=== PATIENT | female | born 1945 | race Caucasian/White ===

== ENCOUNTER 2016-06-12 19:30 | Emergency (ER) | payer OTHER ==
[~2016-06-12] VITALS: Ht 167.6 cm; Wt 90.7 kg
[~2016-06-12 19:30] MED LIST: ESTR.1T TD; LEVA500T33 PO; VENTAER INH
[2016-06-12 19:40] VITALS: BP 187/76; PULSE 86; RESP 20; TEMP 97.6; O2SAT 96
[2016-06-12] MEDS ORDERED: SODIUM CHLOR 0.9% 1000 ML INJ 1,000 ML IV SCH (19:49)
--- NOTE | 2016-06-12 19:53 | PD ---
HPI Chief Complaint: allergic reaction Time Seen by Provider: 19:49 Travel History International Travel<30 days: No Contact w/Intl Traveler<30days: No Traveled to known affect area: No History of Present Illness HPI Patient is a 70-year-old female who took of Bactrim DS at 1:30 PM and at 3 PM noted itching in her arms and legs. She states this is the same reaction she had when she took Keflex, and she is allergic to Keflex, except the itching is more widespread into the arms and legs. She does complain of shortness of breath but denies any wheezing. The patient is a patient of Dr. Michael Peng. The Septra was for a urinary tract infection. She denies any skin rash. [facility] Past Medical History Respiratory: Yes (ASTHMA) Past Surgical History Abdominal Surgery: Yes (LAP. SKYLER) Gynecologic Surgery: Yes (HYSTERECTOMY) Other Surgery: Yes Social History Alcohol Use: No Tobacco Use: No Substance Use: No Allergies-Medications (Allergen,Severity, Reaction): Coded Allergies: Keflex (Unverified Allergy, Severe, ITCH, 02/03/13) Reported Meds & Prescriptions Reported Meds & Active Scripts Active Levaquin (Levofloxacin) 500 Mg Tab 500 Mg PO DAILY Reported Ventolin Hfa (Albuterol Sulfate) 18 Gm Aero 2 Puff INH PRN * SHAKE WELL BEFORE USE * Estraderm (Estradiol) 0.1 Mg/24 Hr Patch 0.1 Mg TD WEEKLY Review of Systems Except as stated in HPI: all other systems reviewed are Neg Physical Exam Narrative GENERAL: Well-nourished, well-developed patient in moderate apparent distress with her itching. Her temperature is 97.6 but she is mouth breathing and blood pressure 187/76. She is anxious. The rest the vital signs are normal. SKIN: Warm and dry. No skin rash is present. HEAD: Normocephalic. EYES: No scleral icterus. No injection or drainage. NECK: Supple, trachea midline. No JVD or lymphadenopathy. CARDIOVASCULAR: Regular rate and rhythm without murmurs, gallops, or rubs. RESPIRATORY: Breath sounds equal bilaterally. No accessory muscle use. Lungs clear to auscultation bilaterally. GASTROINTESTINAL: Abdomen soft, non-tender, nondistended. MUSCULOSKELETAL: No cyanosis, or edema. BACK: The patient has midline low sacral tenderness without obvious deformity. No CVA tenderness. Pressure on this area completely reproduces the patient's pain. Data Data Last Documented VS Vital Signs Date Time Temp Pulse Resp B/P Pulse Ox O2 Delivery O2 Flow Rate FiO2 06/12/16 19:40 97.6 86 20 187/76 96 Orders Ecg Monitoring (06/12/16 19:49) Iv Access Insert/Monitor (06/12/16 19:49) Oximetry (06/12/16 19:49) Diphenhydramine Inj (Benadryl Inj) (06/12/16 20:00) Methylprednisolone So Succ Inj (Solumedr (06/12/16 20:00) Famotidine Inj (Pepcid Inj) (06/12/16 20:00) Sodium Chlor 0.9% 1000 Ml Inj (Ns 1000 M (06/12/16 19:49) Sodium Chloride 0.9% Flush (Ns Flush) (06/12/16 20:00) Epinephrine (1:1000) Inj (Adrenalin (1:1 (06/12/16 20:00) Ketorolac Inj (Toradol Inj) (06/12/16 20:15) Orphenadrine Inj (Norflex Inj) (06/12/16 20:15) MDM Medical Decision Making Medical Screen Exam Complete: Yes Emergency Medical Condition: Yes Medical Record Reviewed: Yes Differential Diagnosis Allergic reaction, anxiety reaction, sulfa allergy, acute exacerbation of low back pain Narrative Course The patient appears to have a sulfa allergy. It is now a 20 3 PM and the patient states her itching has resolved. Her main complaint now is pain in the midline sacral area from her back. She denies any radiation of pain, numbness, weakness or bladder or bowel dysfunction. Diagnosis Primary Impression: Allergy to sulfa drugs Additional Impression: Low back pain Additional Instructions: As we discussed the prednisone is taken one tablet twice daily for 4 days followed by one tablet once daily for 4 days. Follow-up next week with your primary care physician. Med/Other Pt SpecificInfo: Prescription(s) given Scripts Prednisone 50 Mg Tab50 Mg PO BID #12 TAB Ref 0 Prov:Isael Varma MD 06/12/16 Ranitidine (Zantac 150 Maximum Strength)150 Mg [id number] Mg PO BID #30 TAB Prov:Isael Varma MD 06/12/16 Diphenhydramine (Benadryl Allergy)25 Mg Tab25 Mg PO Q6H PRN (ALLERGIES) #30 TAB Ref 0 Prov:Isael Varma MD 06/12/16 Disposition: 01 DISCHARGE HOME Condition: Stable Isael Varma MD Jun 12, 2016 19:53
[2016-06-12 20:00] VITALS: BP 176/90; PULSE 84; RESP 20; O2SAT 96
[2016-06-12] MEDS ORDERED: SODIUM CHLORIDE 0.9% FLUSH 5 ML FLUSH IVF PRN (20:00)
[2016-06-12] MEDS ORDERED: FAMOTIDINE 20 MG/2 ML VIAL IV PUSH ONE (20:00)
[2016-06-12] MEDS ORDERED: diphenhydrAMINE HCL 50 MG/ML VIAL IVP ONE (20:00)
[2016-06-12] MEDS ORDERED: methylPREDNISolone SOD SUCC 125 MG/2 ML VIAL IVP ONE (20:00)
[2016-06-12] MEDS ORDERED: EPINEPHrine HCL (1:1000) 1 MG/ML VIAL IM ONE (20:00)
[2016-06-12 20:15] VITALS: BP 150/75; PULSE 98; RESP 20; O2SAT 96
[2016-06-12] MEDS ORDERED: ORPHENADRINE INJ 60 MG/2 ML AMP IM ONE (20:15)
[2016-06-12] MEDS ORDERED: KETOROLAC TROMETHAMINE 60 MG/2 ML (IM) VIAL IVP ONE (20:15)
[2016-06-12] MEDS ORDERED: ZANTTAB PO (20:28)
[2016-06-12] MEDS ORDERED: BENA25TA3 PO (20:28)
[2016-06-12] MEDS ORDERED: PRED50 PO (20:28)
[2016-06-12 20:30] VITALS: BP 139/70; PULSE 92; RESP 20; O2SAT 97
[2016-06-12 20:45] VITALS: BP 127/63; PULSE 89; RESP 18; O2SAT 97
[2016-06-12] MEDS ORDERED: ESTR0.5T PO (21:07)
[2016-06-12 21:15] VITALS: BP 147/77; PULSE 88; RESP 18; TEMP 97.6; O2SAT 96
[2016-06-12] MEDS ORDERED: MACR100C2 PO (21:24)
== END 2016-06-12 21:42 | disposition home or self-care (01) ==
LOC: PHED 19:30
DX: L29.8 Other pruritus (principal); T37.0X5A Adverse effect of sulfonamides, initial encounter; R06.02 Shortness of breath; J45.909 Unspecified asthma, uncomplicated; M54.5 Low back pain; Y92.9 Unspecified place or not applicable
CPT/HCPCS: 96361; 96372; 96374; 96375; 99284; J0171; J1200; J1885; J2360; J2930; J7030

== ENCOUNTER 2016-07-16 10:43 | Emergency (ER) | payer OTHER ==
[~2016-07-16] VITALS: Ht 167.6 cm; Wt 90.0 kg
[~2016-07-16 10:43] MED LIST changes: +BENA25TA3 PO; -ESTR.1T TD; +ESTR0.5T PO; -LEVA500T33 PO; +MACR100C2 PO; +PRED50 PO; -VENTAER INH; +ZANTTAB PO
[2016-07-16 10:45] VITALS: BP 160/77; PULSE 90; RESP 20; TEMP 97.8; O2SAT 97
[2016-07-16] MEDS ORDERED: LORA-400 PO (11:09)
[2016-07-16 11:10] VITALS: BP 176/87; PULSE 86; RESP 18; O2SAT 94
[2016-07-16] MEDS ORDERED: PANTOPRAZOLE SODIUM 40 MG VIAL IV PUSH ONE (11:45)
[2016-07-16] MEDS ORDERED: FAMOTIDINE 20 MG/2 ML VIAL IV PUSH ONE (11:45)
[2016-07-16 11:56] LABS: BLOOD, URINE NEG (NEG); GLUCOSE,URINE NEG (NEG); KETONE, URINE NEG (NEG); NITRITE,URINE NEG (NEG); SQUAMOUS EPITHELIAL CELL URINE <1 /hpf (0-5); URINE COLOR YELLOW (YELLW/STRAW)
[2016-07-16 11:58] LABS: COMMENT (UR) CULT NOT INDICATED; CULTURE IF INDICATED CULT NOT INDICATED
--- NOTE | 2016-07-16 11:59 | PD ---
HPI Chief Complaint: Chest Pain Time Seen by Provider: 11:52 Travel History International Travel<30 days: No Contact w/Intl Traveler<30days: No Traveled to known affect area: No History of Present Illness HPI 70 yo female that presents to the ED for evaluation of chest pain which she describes as heart burn. Patient reports that she's had this couple days but is worsened today. Per patient she believes this is heartburn as she feels like a burning sensation in her right upper abdomen as well as the right chest. Per patient he seems to move up her chest and makes her feel like she has a burning sensation. Per patient she is currently being treated for a UTI and she is taking Macrobid. She does not know if this is related that she's had this symptoms before but not as severe and she always attributed this to heartburn in the past. She has not taken anything for this. Per patient she was initially put on a different antibiotic on Thursday for a UTI that was found on a urine but not with symptoms and apparently she could not take the antibiotic because he made her to energetic. Per patient the medication was changed on Thursday and ever since she feels like her symptoms have worsened. She denies any bowel movement or urinary issues. She does state that she has urgency but no dysuria. Denies any vaginal discharge. She does not have a gallbladder a uterus. Has allergies to Bactrim, Keflex, sulfa. Per patient the pain is 4 out of 10 and is burning. Has not seen anybody for this. PFSH Past Medical History COPD: Yes Diminished Hearing: No Kidney Stones: Yes Musculoskeletal: Yes (Degenerative disk disease) Respiratory: Yes Immunizations Current: Yes Tetanus Vaccination: Unknown Influenza Vaccination: Yes ?: Not Menopausal: Yes : 2 Para: 3 Past Surgical History Abdominal Surgery: Yes (LAP. SKYLER) Cholecystectomy: Yes () Gynecologic Surgery: Yes (HYSTERECTOMY) Hysterectomy: Yes Joint Replacement: Yes (R knee surgery 2001) Tonsillectomy: Yes Other Surgery: Yes Social History Alcohol Use: Yes (occasionally) Tobacco Use: No Substance Use: No Allergies-Medications (Allergen,Severity, Reaction): Coded Allergies: Bactrim (Verified Allergy, Severe, Shortness of Breath, 07/16/16) SOB, itching Keflex (Verified Allergy, Severe, ITCH, 07/16/16) Sulfa (Verified Allergy, Mild, Itching, 07/16/16) Reported Meds & Prescriptions Reported Meds & Active Scripts Active Macrobid (Nitrofurantoin Monoh/Nitrofur Macro) 100 Mg Cap 100 Mg PO BID 10 Days Reported Claritin-D 24 HR (Loratadine-Pseudoephedrine 24 HR) 10-240 Mg Tab 1 Tab PO DAILY Estradiol 0.5 Mg Tab 0.1 Mg PO DAILY Review of Systems General / Constitutional: No: Fever, Chills, Weight Gain, Weight Loss, Other Eyes: No: Diploplia, Blurred Vision, Photophobia, Drainage, Redness, Foreign Body Sensation, Pain, Tearing, Blind Spots, Visual changes, Blindness, Other HENT: No: Headaches, Vertigo, Lightheadedness, Sore Throat, Rhinitis, Rhinorrhea, Congestion, Nosebleed, Neck Stiffness, Neck Pain, Masses, Gingival Bleeding, Dental Difficulties, Ear Discharge, Earache, Other Cardiovascular: Positive: Chest Pain or Discomfort, No: Palpitations, Irregular Rhythm, Tachycardia, Diaphoresis, Syncope, Dyspnea on exertion, Varicosities, Edema, Cyanosis, Varicosities, Phlebitis, Claudication, Other Respiratory: No: Cough, Shortness of Breath, Wheezing, Sneezing, Orthopnea, Hemoptysis, Stridor, Night Sweats, Pleuritic Pain, Other Gastrointestinal: Positive: Abdominal Pain, Indigestion, No: Nausea, Vomiting , Diarrhea, Hematemesis, Hematochezia, Constipation, Changes in Bowel Habits, Dysphagia, Loss of Appetite, Other Genitourinary: Positive: Urgency, Frequency, No: Dysuria, Nocturia, Hematuria , Decreased Urinary Output, Oliguria, Hesitancy, Dribbling, Incontinence, Pelvic Pain, Flank Pain, Dyspareunia, Discharge, Dysmenorrhea, Menorrhagia, Metorrhagia, Vaginal Bleeding, Other Musculoskeletal: No: Myalgias, Arthralgias, Limited ROM, Weakness, Cramping, Edema, Pain, Atrophy, Other Skin: No Rash, No Itching, No Dryness, No Lumps, No Hives, No Change in Pigmentation, No Change in nails, No Alopecia, No Lesions, No Breast Lumps, No Breast Tenderness, No Breast Swelling, No Other Neurologic: No: Weakness, Dizziness, Syncope, Focal Abnormalities, Coordination Problem, Tremor, Ataxia, Headache, Change in Mentation, Slurred Speech, Paresthesia, Incontinence, Seizures, Sensory Disturbance, Other Psychiatric: No: Anxiety, Depression, Suicidal Ideations, Disorder of Thought, Mood Disorder, Substance Abuse, Homicidal Ideation, Other Endocrine: No: Heat Intolerance, Cold Intolerance, Polyuria, Polydipsia, Other Hematologic/Lymphatic: No: Easy Bruising, Lymph Node Enlargement, Other Physical Exam Narrative GENERAL: SKIN: Warm and dry. No rashes noted. HEAD: Atraumatic. Normocephalic. EYES: Pupils equal and round. No scleral icterus. No injection or drainage. ENT: No nasal bleeding or discharge. Mucous membranes pink and moist. Tongue is midline. No uvula deviation. NECK: Trachea midline. No JVD. CARDIOVASCULAR: Regular rate and rhythm. No murmurs, S3, S4. RESPIRATORY: No accessory muscle use. Clear to auscultation. Breath sounds equal bilaterally. GASTROINTESTINAL: Abdomen soft, non-tender, nondistended. Hepatic and splenic margins not palpable. MUSCULOSKELETAL: Extremities without clubbing, cyanosis, or edema. No obvious deformities. Full range of motion of the upper and lower extremities bilaterally. 2+ pulses bilaterally. NEUROLOGICAL: Awake and alert. No obvious cranial nerve deficits. Motor grossly within normal limits. Five out of 5 muscle strength in the arms and legs. Normal speech. PSYCHIATRIC: Appropriate mood and affect; insight and judgment normal. Data Data Last Documented VS Vital Signs Date Time Temp Pulse Resp B/P Pulse Ox O2 Delivery O2 Flow Rate FiO2 07/16/16 13:09 81 16 111/67 96 Room Air 07/16/16 10:45 97.8 Orders Electrocardiogram (07/16/16 ) Complete Blood Count With Diff (07/16/16 11:31) Comprehensive Metabolic Panel (07/16/16 11:31) Ckmb (Isoenzyme) Profile (07/16/16 11:31) Troponin I (07/16/16 11:31) Lipase (07/16/16 11:31) Urinalysis - C+S If Indicated (07/16/16 11:31) Chest, Single Ap (07/16/16 11:31) Iv Access Insert/Monitor (07/16/16 11:31) Ecg Monitoring (07/16/16 11:31) Oximetry (07/16/16 11:31) Pantoprazole Inj (Protonix Inj) (07/16/16 11:45) Famotidine Inj (Pepcid Inj) (07/16/16 11:45) Labs Laboratory Tests Test 07/16/16 11:40 White Blood Count 7.7 TH/MM3 Red Blood Count 4.59 MIL/MM3 Hemoglobin 12.8 GM/DL Hematocrit 37.9 % Mean Corpuscular Volume 82.5 FL Mean Corpuscular Hemoglobin 27.8 PG Mean Corpuscular Hemoglobin 33.7 % Concent Red Cell Distribution Width 15.0 % Platelet Count 302 TH/MM3 Mean Platelet Volume 7.9 FL Neutrophils (%) (Auto) 64.1 % Lymphocytes (%) (Auto) 25.7 % Monocytes (%) (Auto) 8.4 % Eosinophils (%) (Auto) 1.4 % Basophils (%) (Auto) 0.4 % Neutrophils # (Auto) 4.9 TH/MM3 Lymphocytes # (Auto) 2.0 TH/MM3 Monocytes # (Auto) 0.6 TH/MM3 Eosinophils # (Auto) 0.1 TH/MM3 Basophils # (Auto) 0.0 TH/MM3 CBC Comment DIFF FINAL Differential Comment Urine Color YELLOW Urine Turbidity CLEAR Urine pH 5.0 Urine Specific [place] 1.002 Urine Protein NEG mg/dL Urine Glucose (UA) NEG mg/dL Urine Ketones NEG mg/dL Urine Occult Blood NEG Urine Nitrite NEG Urine Bilirubin NEG Urine Urobilinogen LESS THAN 2.0 MG/DL Urine Leukocyte Esterase NEG Urine RBC LESS THAN 1 /hpf Urine Squamous Epithelial <1 /hpf Cells Microscopic Urinalysis Comment CULT NOT INDICATED Sodium Level 136 MEQ/L Potassium Level 4.0 MEQ/L Chloride Level 101 MEQ/L Carbon Dioxide Level 26.1 MEQ/L Anion Gap 9 MEQ/L Blood Urea Nitrogen 11 MG/DL Creatinine 0.65 MG/DL Estimat Glomerular Filtration 91 ML/MIN Rate Random Glucose 88 MG/DL Calcium Level 9.2 MG/DL Total Bilirubin 0.3 MG/DL Aspartate Amino Transf 19 U/L (AST/SGOT) Alanine Aminotransferase 23 U/L (ALT/SGPT) Alkaline Phosphatase 91 U/L Total Creatine Kinase 78 U/L Troponin I LESS THAN 0.02 NG/ML Total Protein 7.3 GM/DL Albumin 3.7 GM/DL Lipase 115 U/L [facility] Medical Decision Making Medical Screen Exam Complete: Yes Emergency Medical Condition: Yes Medical Record Reviewed: Yes Interpretation(s) EKG shows sinus rhythm with no sign of acute ischemia or arrhythmia read by me and attending. CBC & BMP Diagram 07/16/16 11:40 Last Impressions Chest X-Ray 07/16/16 1131 Signed Impressions: Service Date/Time: Thursday, July 16, 2016 11:45 - CONCLUSION: No acute disease. Otto Beyer MD FACR LFTs and lipase negative. Urine negative. Differential Diagnosis Chest pain versus ACS versus heartburn versus GERD versus acute abdomen versus pneumonia versus UTI versus medication side effect versus peptic ulcer disease Narrative Course 70-year-old female that presents to the ED for evaluation of chest pain and possible heartburn. Patient was properly examined and was found to have signs and symptoms of unclear etiology. At this time I recommend labs and imaging to rule out any sign of severe illness including cardiac up of this appears to be less likely. From patient's symptoms and history this appears to be related to heartburn but will assess to rule out ACS as well as her severe illness. Patient was given Protonix and Pepcid. Labs and imaging showed no sign of acute disease. At this time I do not believe that this is ACS. This appears to be noncardiac chest pain. Patient had good relief with IV Protonix and Pepcid with no issues. Case was discussed in my attending Dr. Alexis who was made aware of all findings and physical exam and agrees the patient can be discharged home with prescriptions for heartburn including Zantac and Protonix. Patient was given all results and reassured. She agrees with plan. She was made aware of any symptoms to come back including severe chest pain, worsening symptoms, fevers chills or sweats or anything that might make her feel that is not improving. She agrees with plan. Follow up with PCP. See ED worsening symptoms. Diagnosis Primary Impression: Heartburn Additional Impression: Epigastric abdominal pain Patient Instructions: General Instructions Additional Instructions: Take medications as prescribed. Follow with PCP. See ED if worsening symptoms. Med/Other Pt SpecificInfo: Prescription(s) given Scripts Pantoprazole (Protonix)20 Mg Tab20 Mg PO DAILY 14 Days Ref 0 Prov:Christy Alexis MD 07/16/16 Ranitidine (Zantac)150 Mg [id number] Mg PO BID PRN (PAIN SCALE 1 TO 10) #20 TAB Prov:Christy Alexis MD 07/16/16 Disposition: 01 DISCHARGE HOME Condition: Stable Carmine Santa Jul 16, 2016 11:59
[2016-07-16 12:01] LABS: AUTOMATED NEUTROPHIL # 4.9 TH/MM3 (1.8-7.7); BASOPHIL % 0.4 % (0.0-2.0); EOSINOPHIL # 0.1 TH/MM3 (0-0.4); EOSINOPHIL % 1.4 % (0.0-4.0); HEMATOCRIT 37.9 % (35.0-46.0); HEMO FLAGS DIFF FINAL; LYMPH % 25.7 % (9.0-44.0); MEAN CELL VOLUME 82.5 FL (80.0-100.0); MEAN CORPUSCULAR HEMOGLOBIN 27.8 PG (27.0-34.0); MEAN CORPUSCULAR HGB CONC 33.7 % (32.0-36.0); MONO % 8.4 % (0.0-8.0); NEUT % 64.1 % (16.0-70.0); PLATELET COUNT 302 TH/MM3 (150-450); RED BLOOD COUNT 4.59 MIL/MM3 (4.00-5.30); WHITE BLOOD COUNT 7.7 TH/MM3 (4.0-11.0)
[2016-07-16 12:23] LABS: ANION GAP 9 MEQ/L (5-15); AST (GOT) 19 U/L (15-37); BICARBONATE 26.1 MEQ/L (21.0-32.0); BLOOD UREA NITROGEN 11 MG/DL (7-18); CHLORIDE 101 MEQ/L (98-107); GLOMERULAR FILTRATION RATE 91 ML/MIN (>89); SODIUM (NA) 136 MEQ/L (136-145)
[2016-07-16 12:43] LABS: ALKALINE PHOSPHATASE 91 U/L (45-117); ALT (GPT) 23 U/L (10-53); TOTAL BILIRUBIN ADULT 0.3 MG/DL (0.2-1.0)
[2016-07-16 13:01] LABS: CREATINE KINASE 78 U/L (26-192)
--- NOTE | 2016-07-16 13:08 | RADRPT ---
EXAM DATE/TIME: 07/16/2016 11:45 [facility] COMPARISON: No previous studies available for comparison. INDICATIONS : Chest pain. MEDICAL HISTORY : Chronic obstructive pulmonary disease. currently has uti SURGICAL HISTORY : None. ENCOUNTER: Initial ACUITY: 1 day PAIN SCORE: 2/10 LOCATION: Bilateral chest FINDINGS: A single view of the chest demonstrates the lungs to be symmetrically aerated without evidence of mas s, infiltrate or effusion. The cardiomediastinal contours are unremarkable. Osseous structures are intact. CONCLUSION: No acute disease. Otto Beyer MD FACR on July 16, 2016 at 13:06 Board Certified Radiologist. This report was verified electronically.
[2016-07-16 13:09] VITALS: BP 111/67; PULSE 81; RESP 16; O2SAT 96
[2016-07-16] MEDS ORDERED: PANT20 PO (13:21)
[2016-07-16] MEDS ORDERED: ZANT150T2 PO (13:21)
--- NOTE | 2016-07-17 13:35 | EKG ---
Date Performed: 07/16/2016 Time Performed: 10:58:57 PTAGE: 70 years EKG: Sinus rhythm NORMAL ECG NO PREVIOUS TRACING DOCTOR: Russ Segundo Interpretating Date/Time 07/17/2016 13:34:17
== END 2016-07-16 13:39 | disposition home or self-care (01) ==
LOC: NEPC 10:43
DX: R12 Heartburn (principal); R10.13 Epigastric pain; R39.15 Urgency of urination; Z87.09 Personal history of other diseases of the respiratory system; Z87.448 Personal history of other diseases of urinary system; Z87.39 Personal history of other diseases of the musculoskeletal system and connective tissue
CPT/HCPCS: 71010; 80053; 81001; 82550; 83690; 84484; 85025; 93005; 96374; 96375; 99284; C9113